=== PATIENT | female | born 1955 | race Two or more races ===

== ENCOUNTER → 2018-06-08 | Emergency (ER) | payer OTHER ==
[~2018-06-08] VITALS: Ht 162.6 cm; Wt 74.8 kg
[~2018-06-08] MED LIST: BENADRYL25 MG; DEPAKOTE ER250 MG; LITHIUM CARBON150 MG; METFORMIN HCL500 MG; PERCOCET 10-3251 TAB; RESTORIL7.5 MG; VASOTEC10 MG; VERAPAMIL ER240 MG; VISTARIL50 MG; XANAX2 MG
== END | disposition home or self-care (01) ==
LOC: ER 18:50
DX: S20.212A Contusion of left front wall of thorax, initial encounter (principal); S20.211A Contusion of right front wall of thorax, initial encounter; S90.02XA Contusion of left ankle, initial encounter; S50.01XA Contusion of right elbow, initial encounter; S80.02XA Contusion of left knee, initial encounter; S80.01XA Contusion of right knee, initial encounter; W18.39XA Other fall on same level, initial encounter; Y93.89 Activity, other specified; Y92.59 Other trade areas as the place of occurrence of the external cause; Y99.8 Other external cause status

== ENCOUNTER → 2018-09-29 | Outpatient (CLI) | payer OTHER | END | disposition home or self-care (01) | LOC: NUCLEAR 07:00 → EDBD 07:33 → NUCLEAR 07:33 | DX: K31.84 Gastroparesis (principal) | CPT/HCPCS: 78264; A9541 ==

== ENCOUNTER 2019-01-07 08:08 | Outpatient (CLI) | payer OTHER | END 2019-01-07 08:21 | disposition home or self-care (01) | LOC: TOM 08:08 | DX: R91.1 Solitary pulmonary nodule (principal); Z12.31 Encounter for screening mammogram for malignant neoplasm of breast ==

== ENCOUNTER 2019-06-11 08:16 | Outpatient (CLI) | payer OTHER | END 2019-06-11 08:19 | disposition home or self-care (01) | LOC: TOM 08:16 | DX: R91.1 Solitary pulmonary nodule (principal); J44.0 Chronic obstructive pulmonary disease with (acute) lower respiratory infection ==

== ENCOUNTER 2019-11-25 08:37 | Outpatient (CLI) | payer OTHER | END 2019-11-25 08:44 | disposition home or self-care (01) | LOC: SONOGRAMA 08:37 | DX: R10.0 Acute abdomen (principal) ==

== ENCOUNTER 2019-11-26 11:20 | Outpatient (CLI) | payer OTHER | END 2019-11-26 11:50 | disposition home or self-care (01) | LOC: NUCLEAR 11:20 | DX: M89.8X0 Other specified disorders of bone, multiple sites (principal) ==

== ENCOUNTER 2020-05-03 10:01 | Outpatient (CLI) | payer OTHER | END 2020-05-03 10:11 | disposition home or self-care (01) | LOC: MAMO-SONO 10:01 | PROVIDERS: ATTEND Internal Medicine Cardiovascular Disease | DX: Z12.31 Encounter for screening mammogram for malignant neoplasm of breast (principal); N64.59 Other signs and symptoms in breast ==

== ENCOUNTER 2020-05-03 11:21 | Outpatient (CLI) | payer OTHER | END 2020-05-03 11:27 | disposition home or self-care (01) | LOC: LAB 11:21 | PROVIDERS: ATTEND Radiology Diagnostic Radiology | DX: N20.0 Calculus of kidney (principal) ==

== ENCOUNTER 2020-05-10 08:51 | Outpatient (CLI) | payer OTHER | END 2020-05-10 09:09 | disposition home or self-care (01) | LOC: TOM 08:51 | PROVIDERS: ATTEND Internal Medicine | DX: R91.1 Solitary pulmonary nodule (principal); J44.9 Chronic obstructive pulmonary disease, unspecified; R10.10 Upper abdominal pain, unspecified; I71.4 Abdominal aortic aneurysm, without rupture | CPT/HCPCS: 71260; 74160; Q9965 ==

== ENCOUNTER 2020-05-16 12:40 | Outpatient (CLI) | payer OTHER | END 2020-05-16 12:48 | disposition home or self-care (01) | LOC: NUCLEAR 12:40 | PROVIDERS: ATTEND Internal Medicine Cardiovascular Disease | DX: M81.0 Age-related osteoporosis without current pathological fracture (principal); E55.9 Vitamin D deficiency, unspecified ==

== ENCOUNTER 2020-06-08 10:26 | Emergency (ER) | payer OTHER ==
[~2020-06-08] VITALS: Ht 162.6 cm; Wt 77.1 kg
[2020-06-08] MEDS ORDERED: KETO10TA2 PO (11:45)
[2020-06-08] MEDS ORDERED: NORFLEX100MG PO (11:45)
== END 2020-06-08 11:56 | disposition home or self-care (01) ==
LOC: ER 10:26
DX: S10.83XA Contusion of other specified part of neck, initial encounter (principal); S30.0XXA Contusion of lower back and pelvis, initial encounter; M54.2 Cervicalgia; M54.5 Low back pain; W06.XXXA Fall from bed, initial encounter; Y93.89 Activity, other specified; Y92.092 Bedroom in other non-institutional residence as the place of occurrence of the external cause; Y99.8 Other external cause status

== ENCOUNTER 2020-07-22 12:56 | Outpatient (CLI) | payer OTHER ==
[~2020-07-22 12:56] MED LIST changes: +KETO10TA2 PO; +NORFLEX100MG PO
== END 2020-07-22 14:00 | disposition home or self-care (01) ==
LOC: OFIC 805 12:56
PROVIDERS: ATTEND Otolaryngology Otology & Neurotology
DX: K21.9 Gastro-esophageal reflux disease without esophagitis (principal); J02.8 Acute pharyngitis due to other specified organisms

== ENCOUNTER 2020-07-27 07:43 | Outpatient (CLI) | payer OTHER | END 2020-07-27 07:55 | disposition home or self-care (01) | LOC: NUCLEAR 07:43 | PROVIDERS: ATTEND Internal Medicine Cardiovascular Disease | DX: I10 Essential (primary) hypertension (principal) ==

== ENCOUNTER 2020-08-04 15:52 | Emergency (ER) | payer OTHER ==
[~2020-08-04] VITALS: Ht 162.6 cm; Wt 73.5 kg
== END 2020-08-04 17:20 | disposition home or self-care (01) ==
LOC: ER 15:52
DX: M79.18 Myalgia, other site (principal)

== ENCOUNTER 2020-08-11 12:00 | Outpatient (CLI) | payer OTHER | END 2020-08-11 13:12 | disposition home or self-care (01) | LOC: LAB 12:00 | PROVIDERS: ATTEND Urology | DX: N30.00 Acute cystitis without hematuria (principal) ==

== ENCOUNTER 2020-08-11 13:07 | Outpatient (CLI) | payer OTHER | END 2020-08-11 13:17 | disposition home or self-care (01) | LOC: SONOGRAMA 13:07 | PROVIDERS: ATTEND Urology | DX: R10.2 Pelvic and perineal pain (principal); N39.46 Mixed incontinence ==

== ENCOUNTER 2020-08-24 09:10 | Outpatient (CLI) | payer OTHER | END 2020-08-24 09:16 | disposition home or self-care (01) | LOC: MRI 09:10 | PROVIDERS: ATTEND Anesthesiology | DX: M48.07 Spinal stenosis, lumbosacral region (principal); M54.5 Low back pain | CPT/HCPCS: 72148 ==

== ENCOUNTER 2020-08-26 07:16 | Outpatient (CLI) | payer OTHER | END 2020-08-26 07:26 | disposition home or self-care (01) | LOC: NUCLEAR 07:16 | PROVIDERS: ATTEND Specialist/Technologist, Other Nephrology | DX: N19 Unspecified kidney failure (principal); N13.9 Obstructive and reflux uropathy, unspecified | CPT/HCPCS: 78708; A9539; J1940 ==

== ENCOUNTER → 2021-04-12 | Outpatient (CLI) | payer OTHER | END | disposition home or self-care (01) | LOC: TOM 10:33 | DX: J43.2 Centrilobular emphysema (principal); M99.02 Segmental and somatic dysfunction of thoracic region ==

== ENCOUNTER 2021-04-17 08:49 | Outpatient (CLI) | payer OTHER | END 2021-04-17 09:01 | disposition home or self-care (01) | LOC: MAMO-SONO 08:49 | PROVIDERS: ATTEND Internal Medicine | DX: C50.012 Malignant neoplasm of nipple and areola, left female breast (principal); Z12.31 Encounter for screening mammogram for malignant neoplasm of breast ==

== ENCOUNTER → 2021-05-04 | Emergency (ER) | payer OTHER ==
[~2021-05-04] VITALS: Ht 160 cm; Wt 60.8 kg
== END | disposition home or self-care (01) ==
LOC: ER 19:58
DX: M94.0 Chondrocostal junction syndrome [Tietze] (principal); M62.838 Other muscle spasm

== ENCOUNTER 2021-05-26 11:36 | Emergency (ER) | payer OTHER ==
[~2021-05-26] VITALS: Ht 167.6 cm; Wt 70.3 kg
== END 2021-05-26 13:01 | disposition left against medical advice (07) ==
LOC: ER 11:36
DX: E11.649 Type 2 diabetes mellitus with hypoglycemia without coma (principal)

== ENCOUNTER 2021-07-10 10:05 | Outpatient (CLI) | payer OTHER | END 2021-07-10 10:31 | disposition home or self-care (01) | LOC: RAD 10:05 | DX: M25.522 Pain in left elbow (principal); M70.32 Other bursitis of elbow, left elbow; R20.3 Hyperesthesia ==

== ENCOUNTER 2021-07-19 07:29 | Outpatient (CLI) | payer OTHER | END 2021-07-19 07:35 | disposition home or self-care (01) | LOC: NUCLEAR 07:29 | PROVIDERS: ATTEND Podiatrist | DX: I73.89 Other specified peripheral vascular diseases (principal); I87.2 Venous insufficiency (chronic) (peripheral) ==

== ENCOUNTER 2021-07-20 07:32 | Outpatient (CLI) | payer OTHER | END 2021-07-20 07:35 | disposition home or self-care (01) | LOC: NUCLEAR 07:32 | DX: I73.9 Peripheral vascular disease, unspecified (principal) ==

== ENCOUNTER 2021-07-20 08:18 | Outpatient (CLI) | payer OTHER | END 2021-07-20 08:45 | disposition home or self-care (01) | LOC: SONOGRAMA 08:18 | PROVIDERS: ATTEND Internal Medicine Gastroenterology | DX: R10.84 Generalized abdominal pain (principal); R10.13 Epigastric pain ==

== ENCOUNTER 2021-08-02 08:52 | Outpatient (CLI) | payer OTHER | END 2021-08-02 08:57 | disposition home or self-care (01) | LOC: RAD 08:52 | PROVIDERS: ATTEND Anesthesiology | DX: M77.32 Calcaneal spur, left foot (principal); M54.59 Other low back pain ==

== ENCOUNTER 2021-10-04 08:19 | Outpatient (CLI) | payer OTHER | END 2021-10-04 08:24 | disposition home or self-care (01) | LOC: TOM 08:19 | PROVIDERS: ATTEND Psychiatry & Neurology Clinical Neurophysiology | DX: G93.89 Other specified disorders of brain (principal) ==

== ENCOUNTER 2021-11-01 08:13 | Outpatient (CLI) | payer OTHER | END 2021-11-01 08:25 | disposition home or self-care (01) | LOC: SONOGRAMA 08:13 | PROVIDERS: ATTEND Otolaryngology | DX: R07.1 Chest pain on breathing (principal); R13.19 Other dysphagia; E04.8 Other specified nontoxic goiter ==

== ENCOUNTER 2021-12-21 08:07 | Outpatient (CLI) | payer OTHER | END 2021-12-21 08:20 | disposition home or self-care (01) | LOC: TOM 08:07 | PROVIDERS: ATTEND Otolaryngology | DX: R13.10 Dysphagia, unspecified (principal); R13.14 Dysphagia, pharyngoesophageal phase; D37.6 Neoplasm of uncertain behavior of liver, gallbladder and bile ducts | CPT/HCPCS: 71260; 73565; 73590; Q9965 ==

== ENCOUNTER 2022-01-03 07:16 | Outpatient (CLI) | payer OTHER | END 2022-01-03 07:29 | disposition home or self-care (01) | LOC: LAB 07:16 | PROVIDERS: ATTEND Otolaryngology | DX: R13.12 Dysphagia, oropharyngeal phase (principal); D68.8 Other specified coagulation defects; H25.011 Cortical age-related cataract, right eye; Z98.41 Cataract extraction status, right eye ==

== ENCOUNTER 2022-01-08 07:16 | Outpatient (CLI) | payer OTHER | END 2022-01-08 07:17 | disposition home or self-care (01) | LOC: NUCLEAR 07:16 | PROVIDERS: ATTEND Orthopaedic Surgery | DX: M25.561 Pain in right knee (principal); M25.562 Pain in left knee ==

== ENCOUNTER 2022-02-13 06:49 | Outpatient (CLI) | payer OTHER | END 2022-02-13 07:12 | disposition home or self-care (01) | LOC: LAB 06:49 | PROVIDERS: ATTEND Orthopaedic Surgery | DX: N39.0 Urinary tract infection, site not specified (principal); E78.5 Hyperlipidemia, unspecified; E03.9 Hypothyroidism, unspecified; E11.9 Type 2 diabetes mellitus without complications; D64.9 Anemia, unspecified; R19.5 Other fecal abnormalities; N18.32 Chronic kidney disease, stage 3b ==

== ENCOUNTER → 2022-02-15 08:05 | Outpatient (CLI) | payer OTHER | END | disposition home or self-care (01) | LOC: NUCLEAR 08:05 | PROVIDERS: ATTEND Orthopaedic Surgery | DX: M81.0 Age-related osteoporosis without current pathological fracture (principal); Z88.8 Allergy status to other drugs, medicaments and biological substances ==

== ENCOUNTER 2022-10-02 07:02 | Outpatient (CLI) | payer OTHER | END 2022-10-02 13:30 | disposition home or self-care (01) | LOC: TOM 07:02 | PROVIDERS: ATTEND Otolaryngology | DX: R22.1 Localized swelling, mass and lump, neck (principal) | CPT/HCPCS: 70491; Q9965 ==

== ENCOUNTER 2022-12-05 06:18 | Outpatient (CLI) | payer OTHER | END 2022-12-05 06:50 | disposition home or self-care (01) | LOC: MAMO-SONO 06:18 | PROVIDERS: ATTEND Internal Medicine Cardiovascular Disease | DX: Z12.31 Encounter for screening mammogram for malignant neoplasm of breast (principal); I70.0 Atherosclerosis of aorta ==

== ENCOUNTER 2022-12-13 12:50 | Outpatient (CLI) | payer OTHER | END 2022-12-13 12:52 | disposition home or self-care (01) | LOC: NUCLEAR 12:50 | DX: M81.0 Age-related osteoporosis without current pathological fracture (principal) ==

== ENCOUNTER → 2023-01-21 | Outpatient (CLI) | payer OTHER | END | disposition home or self-care (01) | LOC: SONOGRAMA 01-18 06:27 | PROVIDERS: ATTEND Internal Medicine Cardiovascular Disease | DX: R10.9 Unspecified abdominal pain (principal) ==

== ENCOUNTER 2023-05-02 09:56 | Emergency (ER) | payer OTHER ==
[~2023-05-02] VITALS: Ht 162.6 cm; Wt 79.8 kg
[2023-05-02] MEDS ORDERED: HYZAAR 100-251 EACH PO (10:32)
[2023-05-02] MEDS ORDERED: GLUMETZA1000 MG PO (10:32)
[2023-05-02] MEDS ORDERED: ADULT LOW DOSE81 M1 (10:33)
[2023-05-02] MEDS ORDERED: XANAX0.25 MG PO (10:36)
[2023-05-02] MEDS ORDERED: RESTORIL7.5 MG PO (10:36)
[2023-05-02] MEDS ORDERED: NEURONTIN300 MG PO (10:37)
[2023-05-02] MEDS ORDERED: DEPAKOTE ER250 MG PO (10:37)
== END 2023-05-02 16:44 | disposition home or self-care (01) ==
LOC: ER 09:56
DX: R07.9 Chest pain, unspecified (principal); F32.89 Other specified depressive episodes; M19.90 Unspecified osteoarthritis, unspecified site; Z88.8 Allergy status to other drugs, medicaments and biological substances

== ENCOUNTER 2023-06-19 08:26 | Outpatient (CLI) | payer OTHER ==
[~2023-06-19 08:26] MED LIST changes: +ADULT LOW DOSE81 M1; +DEPAKOTE ER250 MG PO; +GLUMETZA1000 MG PO; +HYZAAR 100-251 EACH PO; +NEURONTIN300 MG PO; +RESTORIL7.5 MG PO; +XANAX0.25 MG PO
== END 2023-06-19 08:28 | disposition home or self-care (01) ==
LOC: LAB 08:26
DX: N39.3 Stress incontinence (female) (male) (principal)

== ENCOUNTER 2023-06-20 08:58 | Outpatient (CLI) | payer OTHER | END 2023-06-20 09:10 | disposition home or self-care (01) | LOC: MRI 08:58 | DX: R56.00 Simple febrile convulsions (principal); R56.9 Unspecified convulsions | CPT/HCPCS: 70551 ==

== ENCOUNTER 2023-07-30 07:29 | Emergency (ER) | payer OTHER ==
[~2023-07-30] VITALS: Ht 162.6 cm; Wt 76.2 kg
== END 2023-07-30 11:38 | disposition home or self-care (01) ==
LOC: ER 07:29
DX: M94.0 Chondrocostal junction syndrome [Tietze] (principal); F17.210 Nicotine dependence, cigarettes, uncomplicated; Z85.89 Personal history of malignant neoplasm of other organs and systems; J45.909 Unspecified asthma, uncomplicated; I42.0 Dilated cardiomyopathy; Z88.8 Allergy status to other drugs, medicaments and biological substances; M19.90 Unspecified osteoarthritis, unspecified site; M79.7 Fibromyalgia; J44.9 Chronic obstructive pulmonary disease, unspecified
CPT/HCPCS: 93005; 96365; 96372; 99284; J1885; J2405; J3490

== ENCOUNTER 2023-08-02 23:22 | Emergency (ER) | payer OTHER ==
[~2023-08-02] VITALS: Ht 162.6 cm; Wt 76.2 kg
[2023-08-03] MEDS ORDERED: KETO10TA2 PO (02:00)
[2023-08-03] MEDS ORDERED: NORFLEX100MG PO (02:00)
== END 2023-08-03 04:47 | disposition home or self-care (01) ==
LOC: ER 23:22
DX: S40.011A Contusion of right shoulder, initial encounter (principal); S50.01XA Contusion of right elbow, initial encounter; W10.8XXA Fall (on) (from) other stairs and steps, initial encounter; Y93.89 Activity, other specified; Y92.018 Other place in single-family (private) house as the place of occurrence of the external cause; Y99.9 Unspecified external cause status; E11.9 Type 2 diabetes mellitus without complications; Z79.84 Long term (current) use of oral hypoglycemic drugs; I10 Essential (primary) hypertension; Z87.09 Personal history of other diseases of the respiratory system; Z88.8 Allergy status to other drugs, medicaments and biological substances; M25.511 Pain in right shoulder; M54.2 Cervicalgia; M25.521 Pain in right elbow
CPT/HCPCS: 72040; 73030; 73070; 96372; 99284; J1885; J3490

== ENCOUNTER 2023-08-09 08:18 | Outpatient (CLI) | payer OTHER | END 2023-08-09 08:30 | disposition home or self-care (01) | LOC: SONOGRAMA 08:18 | DX: R10.9 Unspecified abdominal pain (principal) ==

== ENCOUNTER 2023-11-15 07:28 | Outpatient (CLI) | payer OTHER | END 2023-11-15 08:00 | disposition home or self-care (01) | LOC: RAD 07:28 | DX: M54.50 Low back pain, unspecified (principal); M25.562 Pain in left knee; M25.561 Pain in right knee ==

== ENCOUNTER 2024-02-04 07:07 | Outpatient (CLI) | payer OTHER | END 2024-02-04 15:13 | disposition home or self-care (01) | LOC: TOM 07:07 | DX: J44.9 Chronic obstructive pulmonary disease, unspecified (principal); R09.02 Hypoxemia; Z99.81 Dependence on supplemental oxygen; R91.1 Solitary pulmonary nodule; Z12.31 Encounter for screening mammogram for malignant neoplasm of breast; N64.0 Fissure and fistula of nipple | CPT/HCPCS: 71260; 76536; 76641; 77067; Q9965 ==

== ENCOUNTER → 2024-06-17 | Emergency (ER) | payer OTHER ==
[~2024-06-17] VITALS: Ht 162.6 cm; Wt 75.3 kg
== END | disposition left against medical advice (07) ==
LOC: ER 10:22
DX: F41.8 Other specified anxiety disorders (principal); Z88.8 Allergy status to other drugs, medicaments and biological substances

== ENCOUNTER 2024-07-09 06:56 | Outpatient (CLI) | payer OTHER ==
[2024-07-09 08:45] LABS: HEMATOCRIT 36.5 % (36.0-45.00); HEMOGLOBIN 12.4 g/dL (12.0-15.00); MEAN CELL VOLUME 82.5 fL (80.00-100.00); MEAN CORPUSCULAR HEMOGLOBIN 28.1 pg (27.00-32.0); PLATELET COUNT 215 K/uL (150-450); RED BLOOD COUNT 4.42 M/uL (4.00-6.00); RED CELL DISTRIBUTION WIDTH 14.6 % (11.5-14.5)
[2024-07-09 09:51] LABS: ALBUMIN 3.7 gm/dL (3.4-5.0); BILIRUBIN TOTAL 0.21 mg/dL (0.3-1.2); CALCIUM 9.9 mg/dL (8.5-10.1); CREATININE SERUM 0.71 mg/dL (0.55-1.02); GFR 81.38; GLOBULINA 3.5 G/DL (2.4-3.5); POTASSIUM 4.35 mEq/L (3.5-5.1); TOTAL PROTEIN 7.2 gm/dL (6.4-8.2)
[2024-07-09 10:12] LABS: URINE APPEARANCE Clear; URINE BILIRRUBIN Negative (NEGATIVE); URINE BLOOD Negative; URINE COLOR Yellow; URINE GLUCOSE Negative (NEGATIVE); URINE KETONE Negative (NEGATIVE); URINE LEUKOCYTE Small; URINE NITRATE Negative; URINE PROTEIN Negative (NEGATIVE); URINE UROBILINOGEN 0.2 E.U./dl
[2024-07-09 10:16] LABS: URINE BACTERIA 18.8 uL (0.0-1933); URINE EPITHELIAL CELLS 7.5 uL (0.0-38.8); URINE RBC 3.8 uL (0.0-20.8); URINE WBC 16.9 uL (0.0-23.2)
[2024-07-09 10:59] LABS: URINE CAST 0.15 uL (0.0-1.40)
== END 2024-07-09 13:41 | disposition home or self-care (01) ==
LOC: SONOGRAMA 06:56
PROVIDERS: ATTEND General Practice
DX: N39.3 Stress incontinence (female) (male) (principal); R10.9 Unspecified abdominal pain

== ENCOUNTER 2024-07-30 23:41 | Emergency (ER) | payer OTHER ==
[~2024-07-30] VITALS: Ht 162.6 cm; Wt 75.3 kg
== END 2024-07-31 05:50 | disposition home or self-care (01) ==
LOC: ER 23:41
DX: R21 Rash and other nonspecific skin eruption (principal); Z88.8 Allergy status to other drugs, medicaments and biological substances

== ENCOUNTER 2024-08-05 07:27 | Outpatient (CLI) | payer OTHER | END 2024-08-05 08:00 | disposition home or self-care (01) | LOC: RAD 07:27 | DX: M99.01 Segmental and somatic dysfunction of cervical region (principal); M99.02 Segmental and somatic dysfunction of thoracic region; M99.03 Segmental and somatic dysfunction of lumbar region; M25.562 Pain in left knee; M25.561 Pain in right knee ==

== ENCOUNTER 2024-09-25 11:49 | Emergency (ER) | payer OTHER ==
[~2024-09-25] VITALS: Ht 162.6 cm; Wt 72.6 kg
[2024-09-25] MEDS ORDERED: ASPIRIN 325 MG TABLET.EC PO STA (11:58)
[2024-09-25 13:12] LABS: HEMATOCRIT 37.3 % (36.0-45.00); HEMOGLOBIN 12.6 g/dL (12.0-15.00); MEAN CELL VOLUME 84.7 fL (80.00-100.00); MEAN CORPUSCULAR HEMOGLOBIN 28.6 pg (27.00-32.0); MEAN CORPUSCULAR HGB CONC 33.8 g/dl (32.0-36.0); PLATELET COUNT 151 K/uL (150-450); RED BLOOD COUNT 4.41 M/uL (4.00-6.00); RED CELL DISTRIBUTION WIDTH 14.7 % (11.5-14.5)
[2024-09-25 13:30] LABS: INR 1.04; PARTIAL THROMBOPLASTIN TIME 31.1 SECONDS (22.0-34.0); PROTHROMBIN TIME 11.3 SECONDS (9.0-11.5)
[2024-09-25 14:41] LABS: CALCIUM 9.2 mg/dL (8.5-10.1); CREATININE SERUM 0.71 mg/dL (0.55-1.02); GFR 81.38; POTASSIUM 3.66 mEq/L (3.5-5.1)
== END 2024-09-25 17:10 | disposition home or self-care (01) ==
LOC: ER 11:49
PROVIDERS: Emergency Medicine
DX: R07.89 Other chest pain (principal); I10 Essential (primary) hypertension; E11.9 Type 2 diabetes mellitus without complications; Z79.84 Long term (current) use of oral hypoglycemic drugs; Z88.8 Allergy status to other drugs, medicaments and biological substances

== ENCOUNTER 2024-10-05 06:54 | Outpatient (CLI) | payer OTHER | END 2024-10-05 07:15 | disposition home or self-care (01) | LOC: TOM 06:54 | PROVIDERS: ATTEND Anesthesiology | DX: J44.9 Chronic obstructive pulmonary disease, unspecified (principal) | CPT/HCPCS: 71260; Q9965 ==